=== PATIENT | female | born 1945 | race Caucasian/White ===

== ENCOUNTER 2019-07-11 10:38 | Inpatient (IN) | payer OTHER ==
[~2019-07-11] VITALS: Ht 157.5 cm; Wt 68.0 kg
[2019-07-18] MEDS ORDERED: SYNTHROID100 MCG PO (14:55)
[2019-07-18] MEDS ORDERED: CRESTOR20 MG PO (14:56)
== END 2019-07-25 20:59 | disposition home or self-care (01) | DRG 349 ==
LOC: SURG 07-24 07:00 → O/R 07-24 07:25 → SURG 07-24 10:00
PROVIDERS: ADMIT Colon & Rectal Surgery
PROC: 0DBP7ZZ Excision of Rectum, Via Natural or Artificial Opening (ICD-10-PCS; principal; 2019-07-24 07:00)
DX: C20 Malignant neoplasm of rectum (principal); E03.8 Other specified hypothyroidism